=== PATIENT | male | born 1990 | race Caucasian/White ===

== ENCOUNTER 2022-10-04 09:37 | Emergency (ER) | payer MEDICARE, SELFPAY ==
--- NOTE | ~2022-10-04 | US_ITS ---
EXAMINATION: US venous doppler [facility] DATE: 10/04/2022 10:22 INDICATION: Left lower limb pain TECHNIQUE: Grayscale ultrasound images without and with compression and Doppler ultrasound images of the left lower extremity veins were obtained. COMPARISON: None. FINDINGS: The visualized portions of left common femoral vein, profunda (deep) femoral vein, femoral vein, popl iteal vein, peroneal veins, posterior tibial veins and greater saphenous vein outflow are patent. IMPRESSION: 1. No deep venous thrombosis in the left lower limb. Reviewed, dictated and finalized at location A. LD OPERATOR
[2022-10-04 09:42] VITALS: BP 143/74; PULSE 95; RESP 18; TEMP 37.4; O2SAT 99
[2022-10-04 09:47] VITALS: O2SAT 98
[2022-10-04 10:00] VITALS: PULSE 97; RESP 13
[2022-10-04 12:00] LABS: Influenza A QL RT-PCR Negative (Negative); Influenza B QL RT-PCR Negative (Negative); SARS-CoV-2 RNA PCR Negative
--- NOTE | 2022-10-04 12:14 | ED.EXTPRO ---
HPI - Extremity Problem General Chief complaint: Extremity Problem,Nontraumatic Stated complaint: left leg pain x 3 days with low grade fever Time Seen by Provider: 10/04/22 09:41 Source: RN notes reviewed History of Present Illness HPI Narrative: Patient presents emergency room from home for left leg pain. Patient states he has been having some pain in his left leg for the past 3 days the pain starts in his left heel and radiates into his left calf described as aching in nature. He states he has a history of blood clots and is currently on Eliquis as well as has an IVC filter. He is followed by hematology and states he is concerned that he had had a blood clot he denies any trauma or injury he does states he has had a low-grade fever this morning approximately 100 and taken Tylenol he states he has been feeling mildly achy with a mild cough this been nonproductive he denies any chest pain shortness of breath abdominal pain nausea vomiting or any other symptoms Related Data Allergies Allergy/AdvReac Type Severity Reaction Status Date / Time morphine Allergy Mild Rash Verified 10/04/22 09:49 Review of Systems Review of Systems: Gen.: Reports low-grade fever Eyes: Denies eye pain or visual change ENT: Denies congestion Respiratory: Denies shortness of breath reports nonproductive cough CV: Denies chest pain or palpitations GI: Denies abdominal pain nausea, emesis or diarrhea Musculoskeletal: Reports left leg pain Neuro: Denies numbness, tingling, weakness or focal weakness Skin: Denies rash Except as documented, all other systems reviewed and negative [facility] Past Medical History Medical History (Updated 10/04/22 @ 12:19 by Matt Wang DO) DVT (deep venous thrombosis) Social History Social History Smoking status: Never smoker Second hand tobacco smoke exposure: No Alcohol intake: current Exam Narrative: APPEARANCE: No acute distress, nontoxic, resting in bed EYES: EOMI HEENT: Normocephalic, atraumatic, OMM RESPIRATORY: No respiratory distress Clear to auscultation bilaterally with no rhonchi wheezing or rales. CARDIOVASCULAR: Regular rate and rhythm without murmurs rubs or gallops. ABDOMINAL: Soft, nontender, nondistended, no rebound or guarding MUSCULOSKELETAl: Moves all extremities. No clubbing, cyanosis or jessica mild tenderness over the left calf no tenderness left knee or ankle following ingestion of both dorsalis pedis pulse 2+ neurovascular intact no erythema NEURO: Awake and alert. Following commands, speech normal, no focal deficits SKIN:: Warm, dry. No rashes lesions or abrasions PSYCHIATRIC: Normal affect/mood, Course Course Emergency Course: Discussed with patient results of work-up discussed possible calf strain he will follow-up with his PCP Discussed with patient results of workup and diagnosis. Discussed need for follow-up with primary care, proper use of medication, and reasons to return to the emergency department. Patient understands and agrees to current treatment plan Vital Signs Vital signs: Vital Signs Temperature 99.3 F 10/04/22 09:42 Pulse Rate 95 10/04/22 09:42 Respiratory Rate 18 10/04/22 09:42 Blood Pressure 143/74 H 10/04/22 09:42 Pulse Oximetry 99 10/04/22 09:42 Oxygen Delivery Room Air 10/04/22 09:42 Temperature 99.3 F 10/04/22 09:42 Pulse Rate 95 10/04/22 09:42 Respiratory Rate 18 10/04/22 09:42 Blood Pressure 143/74 H 10/04/22 09:42 Pulse Oximetry 99 10/04/22 09:42 Oxygen Delivery Room Air 10/04/22 09:42 MDM - Extremity (Nontraumatic) Lab Data Labs: Lab Results 10/04/22 Range/Units 10:45 Influenza A (RT-PCR) Negative (Negative) Influenza B (RT-PCR) Negative (Negative) SARS-CoV-2 RNA (RT-PCR) Negative Imaging Data Radiologist's impression: ITS Impressions Venous Doppler Study 10/04/22 10:24 IMPRESSION: 1. No deep venous thrombosis in
== END 2022-10-04 12:38 | disposition home or self-care (01) ==
PROVIDERS: Emergency Provider Emergency Medicine
DX: M79.662 Pain in left lower leg (principal); Z20.822 Contact with and (suspected) exposure to COVID-19; Z86.718 Personal history of other venous thrombosis and embolism; Z79.01 Long term (current) use of anticoagulants
CPT/HCPCS: 87636; 93971; 99284

== ENCOUNTER 2025-03-18 14:59 | Emergency (ER) | payer MEDICARE, SELFPAY ==
[2025-03-18 15:00] VITALS: BP 139/76; PULSE 116; RESP 18; TEMP 36.2; O2SAT 98
[2025-03-18 16:17] LABS: Basophils Percent Auto 0.5 % (0.2-1.2); Eosinophils Absolute Auto 0.1 K/mm3 (0-0.3); Eosinophils Percent Auto 2.2 % (0-4.4); Hematocrit 36.8 % (42.0-52.0); Hemoglobin 12.1 g/dL (14.0-18.0); Immature Granulocyte Absolute 0.02 K/mm3 (0.00-0.031); Immature Granulocyte Percent A 0.3 % (0-0.5); Lymphocytes Absolute Auto 1.22 K/mm3 (0.9-3.2); Lymphocytes Percent Auto 19.2 % (18.3-44.2); Mean Corpuscular HGB Conc 32.9 g/dl (32-36); Mean Corpuscular Hemoglobin 31.4 pg (26-34); Mean Corpuscular Volume 95.6 fl (80-100); Mean Platelet Volume 10.6 fl (7.4-10.4); Monocytes Absolute Auto 0.8 K/mm3 (0.1-0.6); Monocytes Percent Auto 12.4 % (2.6-8.5); Neutrophils Absolute Auto 4.2 K/mm3 (1.3-6.7); Neutrophils Percent Auto 65.4 % (45.5-73.1); Platelet Count Result 194 k/mm3 (150-375); Red Blood Count 3.85 M/mm3 (4.6-6.20); Red Cell Distribution Width 14.1 % (11.5-14.5); White Blood Count 6.4 K/mm3 (4.5-10.0)
[2025-03-18 16:20] LABS: Add Urine Microscopic? NO; Appearance Urine Clear (Clear); Bilirubin Urine Negative (Negative); Blood Urine Negative (Negative); Color Urine Yellow (Yellow); Glucose Urine UA Negative (Negative); Ketones Urine 1+ mg/dL (Negative); Leukocyte Esterase Ur Negative LEU/UL (Negative); Nitrate Urine Negative (Negative); Protein Urine Negative (Negative); Specific Grav Ur 1.008 (1.001-1.035); Urobilinogen Urine 0.2 mg/dL (<2.0); pH Urine 6.5 (5.0-9.0)
[2025-03-18 16:28] LABS: Alanine Aminotransferase 19 U/L (6-50); Albumin Level 4.8 g/dL (3.5-5.1); Alkaline Phosphatase 79 U/L (38-126); Anion Gap 14 mmol/L (4-12); Aspartate Amino Transferase 31 U/L (17-59); Bilirubin,Total 0.6 mg/dL (0.2-1.3); Blood Urea Nitrogen 21 mg/dL (9-20); Calcium 9.3 mg/dL (8.4-10.2); Carbon Dioxide 24 mmol/L (22-30); Chloride 99 mmol/L (98-107); Estimated CRCL calculation 65 ml/min; Estimated Glomerular Filt Rate 59; Ethanol < 10 mg/dL (<10); Glucose 82 mg/dL (65-110); Potassium 4.3 mmol/L (3.4-5.0); Sodium 137 mmol/L (137-145)
[2025-03-18 16:40] LABS: Barbiturate Screen Urine Negative (Negative); Benzodiazepines Screen Urine Negative (Negative)
[2025-03-18 16:41] LABS: Cannabinoid Screen Urine Positive (Negative); Cocaine Screen Urine Negative (Negative); Methadone Screen Urine Negative (Negative); Opiate Screen Urine Positive (Negative); Phencyclidine Screen Urine Negative (Negative)
[2025-03-18 16:56] LABS: Influenza A QL RT-PCR Negative (Negative); Influenza B QL RT-PCR Negative (Negative); RSV RNA, RT-PCR Negative (Negative); SARS-CoV-2 RNA PCR Negative (Negative)
--- OUTSIDE RECORDS SUMMARY | 2025-03-18 17:03 | XMS_ITS | Encounter Summary ---
Author Organization [facility] Address [address] [place] [address] Phone Care Team Providers Care Technical Intern Name Role Phone Chris Jo LUIS ARMANDO Primary Care Provider [phone] Jay Rodriguez MD Unavailable Riaz Rose MD Unavailable [phone] Encounter Details Date Type Department Care Team (Late st Contact Info) Description 06/17/2024 Telephone [facility] [place] [address] [place] [address] Jr Reveles DO [address] [place] [address] Social History Tobacco Use Types Packs/Day Years Used Date Smoking Tobacco: Every Day Cigarettes 0.5 16.4 Started: 11/06/2008 Smokeless Tobacco: Never Alcohol Use Standard Drinks/Week Comments Yes 0 (1 standard drink = 0.6 oz pur e alcohol) occasionally PHQ-2 Answer Date Recorded Total Score - Questions 1-9 0 04/27 Sex and Gender Information Value Date Recorded Sex Assigned at Not on file Legal Sex Male 11:21 PM CDT Gender Identity Not on file Sexual Orientation Not on file documented as of this encounter Miscellaneous Notes * Telephone Encounter - FuadCheyanneEstella L - 06/17/2024 2:52 PM CDT Wasn't able to get in contact with pt about missed appt lvm also sent letter out. documented in this encounter Plan of Treatment Upcoming Encounters Date Type Department Care Team (Late st Contact Info) Description 04/17/2025 9:55 AM CDT Lab [facility] [address] [phone] Jr Reveles, DO [address] [place] [address] Lab, Cc [facility] 04/17/2025 10:00 AM CDT Office Visit [facility] [address] [phone] Jr Reveles, DO [address] [place] [address] documented as of this encounter Visit Diagnoses Not on filedocumented in this encounter Additional Health Concerns Assessment Noted Time PHQ-9 Depression Total Score: 0 10/10/20 21 11:08 AM ASSISTED LIVING CARE MANAGER documented as of this encounter Care Teams Technical Intern Relationship Specialty Start Date End Date Chris Jo APRN [address] [place] [phone] PCP - General Advanced Practice Nurse 11/06/17 Jay Rodriguez MD [address] [place] [phone] Urology 07/01/18 08/19/24 Riaz Rose MD Three [facility]. [place] [address] [place], [place] [phone] Consulting Physician Cardiovascular Disease - Cardiology 04/23/20 documented as of this encounter
--- OUTSIDE RECORDS SUMMARY | 2025-03-18 17:03 | XMS_ITS | Encounter Summary ---
Author Organization [facility] Address [address] [place] [address] Phone Care Team Providers Care Building Guard Deputy Sheriff Name Role Phone GailDorindajamesnadine LUIS ARMANOD Primary Care Provider [phone] Jay Rodriguez MD Unavailable Riaz Rose MD Unavailable [phone] Reason for Visit * Reason Onset Date Comments Medication Refill 10/10/2022 Encounter Details Date Type Department Care Team (Late st Contact Info) Description 10/10/2022 Refill [facility] [address] [place] [address] Zaheer Araujo MD [address] [place] [address] Medication Refill Social History Tobacco Use Types Packs/Day Years [...] encounter Miscellaneous Notes * Telephone Encounter - Sweetie Lam APRN, FURNACE ROASTER - 10/11/2022 8:18 AM AIRCRAFT TOOL MAKER Okay to refill. RAFT TOOL MAKER * Telephone Encounter - Keith Tilley - 10/10/2022 4:10 PM CST Refill request for Eliquis 5 mg. Refill if appropriate to [facility] pharmacy RAFT TOOL MAKER documented in this encounter Plan of Treatment Upcoming Encounters Date Type Department Care Team (Late st Contact Info) Description 04/17/2025 9:55 AM CDT Lab [facility] [address] [phone] Jr Reveles, DO [address] [place] [phone] [facility] 04/17/2025 10:00 AM CDT Office Visit [facility] [address] [phone] Jr Reveles, DO [address] [place] [phone] documented as of this encounter Visit Diagnoses Not on filedocumented in this encounter Additional Health Concerns Assessment Noted Time PHQ-9 Depression Total Score: 0 10/10/20 21 11:08 AM AIRCRAFT TOOL MAKER documented as of this encounter Care Teams Building Guard Deputy Sheriff Relationship Specialty Start Date End Date Chris Jo APRN [address] [place] [address] PCP - General Advanced Practice Nurse 11/06/17 Jay Rodriguez MD [address] [place] [address] Urology 07/01/18 08/19/24 Riaz Rose MD Three [facility]. [address] [address] Consulting Physician Cardiovascular Disease - Cardiology 04/23/20 documented as of this encounter
--- OUTSIDE RECORDS SUMMARY | 2025-03-18 17:03 | XMS_ITS | Encounter Summary ---
[facility] Address [address] [place] [address] Phone Care Team Providers Care Bulb Inspector Name Role Phone Chris Jo LUIS ARMANDO Primary Care Provider [phone] Jay Rodriguez MD Unavailable Riaz Rose MD Unavailable [phone] Encounter Details Date Type Department Care Team (Late Contact Info) Description 06/17/2024 Telephone [facility] [address] [address] Jr Reveles DO [address] [place] [phone] Social History Tobacco Use Types Packs/Day [...] on file documented as of this encounter Plan of Treatment Upcoming Encounters Date Type Department Care Team (Late st Contact Info) Description 04/17/2025 9:55 AM CDT Lab [facility] [address] [address] Jr Reveles, DO [address] [place] [address] Jenna Rubi [facility] 04/17/2025 10:00 AM CDT Office Visit [facility] [place] [address] [place] [address] Jr Reveles, DO [address] [place] [address] documented as of this encounter Visit Diagnoses Not on filedocumented in this encounter Additional Health Concerns Assessment Noted Time PHQ-9 Depression Total Score: 0 10/10/20 21 11:08 AM RESIDENTIAL ROOFER HELPER documented as of this encounter Care Teams Bulb Inspector Relationship Specialty Start Date End Date Chris Jo APRN [address] [place] [address] PCP - General Advanced Practice Nurse 11/06/17 Jay Rodriguez MD [address] [place] [address] Urology 07/01/18 08/19/24 Riaz Rose MD Three [facility]. [facility] [address] [place] [address] Consulting Physician Cardiovascular Disease - Cardiology 04/23/20 documented as of this encounter
--- OUTSIDE RECORDS SUMMARY | 2025-03-18 17:03 | XMS_ITS | Encounter Summary ---
Author Organization [facility] Address [address] [place] [address] Phone Care Team Providers Care Grounds Restoration Specialist Name Role Phone Chris Jo LUIS ARMANDO Primary Care Provider [phone] Jay Rodriguez MD Unavailable Riaz Rose MD Unavailable [phone] Encounter Details Date Type Department Care Team (Late st Contact Info) Description 05/30/2024 Telephone [facility] [place] [address] [place] [address] Jr Reveles DO [address] [place] [address] Social History Tobacco Use Types [...] encounter Miscellaneous Notes * Telephone Encounter - MeridaDesirejonel Montelongo - 05/30/2024 12:32 PM CDT Pt missed appt called to rs wasn't able to reach [facility],sent letter out. documented in this encounter Plan of Treatment Upcoming Encounters Date Type Department Care Team (Late st Contact Info) Description 04/17/2025 9:55 AM CDT Lab [facility] [address] [phone] Jr Reveles, DO [address] [place] [address] Lab, Cc [facility] 04/17/2025 10:00 AM CDT Office Visit [facility] [address] [phone] Jr Reveles, DO [address] [place] [address] documented as of this encounter Visit Diagnoses Not on filedocumented in this encounter Additional Health Concerns Assessment Noted Time PHQ-9 Depression Total Score: 0 10/10/20 21 11:08 AM DRIVER RETRAINING INSTRUCTOR documented as of this encounter Care Teams Grounds Restoration Specialist Relationship Specialty Start Date End Date Addy Jonadine LUIS ARMANDO [address] [place] [phone] PCP - General Advanced Practice Nurse 11/06/17 Jay Rodriguez MD [address] [place] [phone] Urology 07/01/18 08/19/24 Riaz Rose MD Three [facility] [address] [place] [address] Consulting Physician Cardiovascular Disease - Cardiology 04/23/20 documented as of this encounter
--- OUTSIDE RECORDS SUMMARY | 2025-03-18 17:03 | XMS_ITS | Encounter Summary ---
Author Organization [facility] Address [address] [place] [address] Phone Care Team Providers Care Box Lining Machine Operator Name Role Phone Chris Jo LUIS ARMANDO Primary Care Provider [phone] Jay Rodriguez MD Unavailable Riaz Rose MD Unavailable [phone] Encounter Details Date Type Department Care Team (Late st Contact Info) Description 04/10/2022 Telephone [facility] [address] [place] [address] Jr Reveles DO [address] [place] [address] Social History Tobacco Use Types Packs/Day Years Used Date Smoking Tobacco: Every Day Cigarettes 0.5 16.4 Started: 11/06/2008 Smokeless Tobacco: Never Alcohol Use Standard Drinks/Week Comments Yes 0 (1 standard drink = 0.6 oz pur e alcohol) occasionally PHQ-2 Answer Date Recorded Total Score - Questions 1-9 0 09/26 Sex and Gender Information Value Date Recorded Sex Assigned at Not on file Legal Sex Male 11:21 PM CDT Gender Identity Not on file Sexual Orientation Not on file documented as of this encounter Miscellaneous Notes * Telephone Encounter - Ayla Valdez - 04/10/2022 12:34 PM CDT Called pt to reschedule ns ov. Letter sent out. VM left. documented in this encounter Plan of Treatment Upcoming Encounters Date Type Department Care Team (Late st Contact Info) Description 04/17/2025 9:55 AM CDT Lab [facility] [address] [phone] Jr Reveles, DO [address] [place] [phone] Lab, Cc [facility] 04/17/2025 10:00 AM CDT Office Visit [facility] [address] [address] Jr Reveles, DO [address] [place] [phone] documented as of this encounter Visit Diagnoses Not on filedocumented in this encounter Additional Health Concerns Assessment Noted Time PHQ-9 Depression Total Score: 0 10/10/20 21 11:08 AM FORM GRADER OPERATOR documented as of this encounter Care Teams Box Lining Machine Operator Relationship Specialty Start Date End Date Addy JoLUIS ARMANDO mccoy [address] [place] [address] PCP - General Advanced Practice Nurse 11/06/17 Jay Rodriguez MD [address] [place] [phone] Urology 07/01/18 08/19/24 Riaz Rose MD Three [facility]. [facility] [address] [place], [place] [phone] Consulting Physician Cardiovascular Disease - Cardiology 04/23/20 documented as of this encounter
--- OUTSIDE RECORDS SUMMARY | 2025-03-18 17:03 | XMS_ITS | Clinical Summary ---
Author Organization [facility] Address [address], [facility] [address] [place] [address] Phone Care Team Providers Care Business Banking Relationship Manager Name Role Phone GailDorindaomar DURÁN Primary Care Provider [phone] Riaz Rose MD Unavailable [phone] Allergies Active Allergy Reactions Criticality Noted Date Comments Morphine Rash Low 10/23/2017 Medications Eliquis 5 MG TabletIndication s:Deep vein thrombosis (DVT) of femoral vein of both lower extremities, unspecified chronicity (HCC) Take 1 tablet by mouth twice daily 180 Tablet 01/19/2025 Active Active Problems Patient Care Coordination No te Formatting of this note migh t be different from the original. 09/06/18: Approved for Xarelto 20mg for 1 year Problem Noted Date Diagnosed Date Dvt femoral (deep venous thrombosis) 11/06/2017 Encounters Date Type Department Care Team Description 02/06/2025 Telephone [facility] [address] [address] Jr Reveles DO 01/17/2025 Refill [facility] [address] [address] Jr Reveles, Medication Refill from Last 3 Months Immunizations Immunization Administration Dates Next Due Covid-19 Vaccine, Vector-nr, Rs-ad26, Pf, 0.5 Ml ([employer]) 03/02/2021 Influenza, Injectable, Quadrivalent 10/01/2017 TDAP Vaccine 06/08/2017,06/09/2010 Family History Medical History Relation Name Comments Diabetes Maternal Grandfather Asthma Maternal Grandmother High Cholesterol Maternal Grandmother Hypertension Maternal Grandmother Diabetes Maternal Uncle Asthma Mother Diabetes Mother High Cholesterol Mother Asthma Sister Relation Name Status Comments Maternal Grandfather Maternal Grandmother Maternal Uncle Mother Sister Social History Tobacco Use Types Packs/Day Years Used Date Smoking Tobacco: Every Day Cigarettes 0.5 16.4 Started: 11/06/2008 Smokeless Tobacco: Never Tobacco Cessation:Ready to Q uit: Yes; Counseling Given: Yes Alcohol Use Standard Drinks/Week Comments Yes 0 (1 standard drink = 0.6 oz pur e alcohol) occasionally PHQ-2 Answer Date Recorded Total Score - Questions 1-9 0 04/27 Sex and Gender Information Value Date Recorded Sex Assigned at Not on file Legal Sex Male 11:21 PM CDT Gender Identity Not on file Sexual Orientation Not on file Last Filed Vital Signs Vital Sign Reading Time Taken Comments Blood Pressure 122/76 10/17/2024 10:04 AM WEED THINNER Pulse 95 10/17/2024 10:04 AM WEED THINNER Temperature 36.7 C (98 F) 10/17/2024 10:04 AM WEED THINNER Respiratory Rate 18 10/17/2024 10:04 AM WEED THINNER Oxygen Saturation 97% 10/17/2024 10:04 AM WEED THINNER Inhaled Oxygen Concentration - - Weight 97.8 kg (215 lb 9.6 oz) 10/17/2024 10:04 AM WEED THINNER Height 182.9 cm (6') 10/17/2024 10:04 AM WEED THINNER Body Mass Index 29.24 10/17/2024 10:04 AM WEED THINNER Plan of Treatment Upcoming Encounters Date Type Department Care Team (Late st Contact Info) Description 04/17/2025 9:55 AM CDT Lab [facility] [address] [address] Jr Reveles, [address] [place] [phone] [facility] 04/17/2025 10:00 AM CDT Office Visit [facility] [address] [phone] Jr Reveles, [address] [place] [address] Health Maintenance Due Date Last Done Comments Hepatitis B Immunization (1 of 3 - 19+ 3-dose series) 01/29/2007 Pneumococcal Immunization Combined (1 of 2 - PCV) 01/29/2007 Influenza Immunization (#1) 07/27/202408/26, 10/01/2017 SARS-COV-2 Immunization (2 - 2023- season) 2024 03/02/2021 Td Immunization Every 10 Years (Adults With 1 Tdap) 06/08/2027 06/08/2017, 06/09/2010 Respiratory Syncytial Virus (RSV) Immunization (Adult) (1 - 1-dose 75+ series) 01/29/2063 DTaP/Tdap/Td Immunization Discontinued 2016, 06/09/2010 Hepatitis C Virus (HCV) Screening Completed 03/28/2018 Meningococcal Immunization (ACWY) Aged Out No longer eligible based on patient's age to complete this topic Rotavirus Immunization Aged Out No lo nger eligible based on patient's age to complete this topic Insurance MEDICARE [facility] [place] [address] Care Teams Business Banking Relationship Manager Relationship Specialty Start Date End Date Chris Jo APRN [address] [place] [address] PCP - General Advanced Practice Nurse 11/06/17 Riaz Rose MD [address] [id number] Consulting Physician Cardiovascular Disease - Cardiology 04/23/20
--- OUTSIDE RECORDS SUMMARY | 2025-03-18 17:03 | XMS_ITS | Encounter Summary ---
Author Organization [facility] Address [address] [place] [address] Phone Care Team Providers Care Front End Web Designer Name Role Phone GailDorindajamesnadine LUIS ARMANDO Primary Care Provider [phone] Jay Rodriguez MD Unavailable Riaz Rose MD Unavailable [phone] Reason for Visit * Reason Comments Medication Refill Encounter Details Date Type Department Care Team (Late st Contact Info) Description 07/29/2023 Refill [facility] [place] [address] [place] [address] Sweetie Alvarez APRN, TANK STORAGE SUPERVISOR [address] [place], [place] [phone] Medication Refill Social History Tobacco Use Types [...] encounter Miscellaneous Notes * Telephone Encounter - Raquel Lr RN - 07/31/2023 8:58 AM CDT Refill request from pharmacy. Please fill if appropriate. documented in this encounter Plan of Treatment Upcoming Encounters Date Type Department Care Team (Late st Contact Info) Description 04/17/2025 9:55 AM CDT Lab [facility] [address] [address] Jr Reveles, DO [address] [place] [address] Lab, [facility] 04/17/2025 10:00 AM CDT Office Visit [facility] [address] [phone] Jr Reveles, DO [address] [place] [phone] documented as of this encounter Visit Diagnoses Diagnosis Deep vein thrombosis (DVT) of femoral vein of both lower extremities, unspecified chronicity (HCC) documented in this encounter Additional Health Concerns Assessment Noted Time PHQ-9 Depression Total Score: 0 10/10/20 21 11:08 AM BULLARD MACHINE OPERATOR documented as of this encounter Care Teams Front End Web Designer Relationship Specialty Start Date End Date Chris Jo APRN [address] [place] [address] PCP - General Advanced Practice Nurse 11/06/17 Jay Rodriguez MD [address] [place] [address] Urology 07/01/18 08/19/24 Riaz Rose MD [facility]. [address] [phone] Consulting Physician Cardiovascular Disease - Cardiology 04/23/20 documented as of this encounter
--- OUTSIDE RECORDS SUMMARY | 2025-03-18 17:03 | XMS_ITS | Encounter Summary ---
Author Organization [facility] Address [address] [place] [address] Phone Care Team Providers Care Treatment Supervisor Name Role Phone Chris Jo LUIS ARMANDO Primary Care Provider [phone] Jay Rodriguez MD Unavailable Riaz Rose MD Unavailable [phone] Reason for Visit * Reason Comments Medication Refill Encounter Details Date Type Department Care Team (Late st Contact Info) Description 03/13/2022 Refill [facility] [address] [place] [address] Jr Reveles, [address] [place] [address] Medication Refill Social History Tobacco [...] encounter Miscellaneous Notes * Telephone Encounter - Wei Mccoy RN - 03/14/2022 7:43 AM CDT Refill request from pharmacy 90 day supply. Refill if appropriate. documented in this encounter Plan of Treatment Upcoming Encounters Date Type Department Care Team (Late st Contact Info) Description 04/17/2025 9:55 AM CDT Lab [facility] [address] [address] Jr Reveles, DO [address] [place] [phone] Lab, [facility] 04/17/2025 10:00 AM CDT Office Visit [facility] [address] [phone] Jr Reveles, DO [address] [place] [phone] documented as of this encounter Visit Diagnoses Not on filedocumented in this encounter Additional Health Concerns Assessment Noted Time PHQ-9 Depression Total Score: 0 10/10/20 21 11:08 AM ORCHARD PRUNER documented as of this encounter Care Teams Treatment Supervisor Relationship Specialty Start Date End Date Chris Jo APRN [address] [place] [address] PCP - General Advanced Practice Nurse 11/06/17 Jay Rodriguez MD [address] [place] [phone] Urology 07/01/18 08/19/24 Riaz Rose MD [address] [phone] Consulting Physician Cardiovascular Disease - Cardiology 04/23/20 documented as of this encounter
--- OUTSIDE RECORDS SUMMARY | 2025-03-18 17:03 | XMS_ITS | Encounter Summary ---
Author Organization [facility] Address [address] [place] [address] Phone Care Team Providers Care Miller Helper Name Role Phone Chris Jo LUIS ARMANDO Primary Care Provider [phone] Jay Rodriguez MD Unavailable Riaz Rose MD Unavailable [phone] Reason for Visit * Reason Comments Medication Refill Encounter Details Date Type Department Care Team (Late st Contact Info) Description 04/21/2021 Refill [facility] [place] [address] [place] [address] Jr Reveles, [address] [place] [address] Medication Refill Social History Tobacco Use Types Packs/Day Years Used Date Smoking Tobacco: Every Day Cigarettes 0.5 16.4 Started: 11/06/2008 Smokeless Tobacco: Never Alcohol Use Standard Drinks/Week Comments Yes 0 (1 standard drink = 0.6 oz pur e alcohol) occasionally PHQ-2 Answer Date Recorded Total Score - Questions 1-9 0 03/26 Sex and Gender Information Value Date Recorded Sex Assigned at Not on file Legal Sex Male 11:21 PM CDT Gender Identity Not on file Sexual Orientation Not on file COVID-19 Exposure Response Date Recorded In the last month, have you been in contact with someone who was confirmed or suspected to have Coronavirus / COVID-19? No / Unsure 04/11/2021 10:37 AM CDT documented as of this encounter Miscellaneous Notes * Telephone Encounter - Wei Mccoy, RN - 04/22/2021 7:51 AM CDT Refill request from pharmacy. Refill if appropriate. documented in this encounter Plan of Treatment Upcoming Encounters Date Type Department Care Team (Late st Contact Info) Description 04/17/2025 9:55 AM CDT Lab [facility] [address] [address] Jr Reveles, DO [address] [place] [phone] [facility] 04/17/2025 10:00 AM CDT Office Visit [facility] [address] [phone] Jr Reveles, DO [address] [place] [phone] documented as of this encounter Visit Diagnoses Not on filedocumented in this encounter Additional Health Concerns Assessment Noted Time PHQ-9 Depression Total Score: 0 04/11/20 21 10:43 AM CDT documented as of this encounter Care Teams Miller Helper Relationship Specialty Start Date End Date Chris Jo APRN [address] [place] [address] PCP - General Advanced Practice Nurse 11/06/17 Jay Rodriguez MD [address] [place] [phone] Urology 07/01/18 08/19/24 Riaz Rose MD [address] [address] Consulting Physician Cardiovascular Disease - Cardiology 04/23/20 documented as of this encounter
--- OUTSIDE RECORDS SUMMARY | 2025-03-18 17:03 | XMS_ITS | Clinical Summary ---
Author Organization [facility] Address [facility] [place] [address] Care Team Providers Care Light Rail Transit Operator Name Role Phone Abdirizak Jr Jannette DO Unavailable [phone] Eloisa Lemos MD Primary Care Provider [phone] Allergies Active Allergy Reactions Criticality Noted Date Comments Morphine Rash Low 10/23/2017 Medications amitriptyline (ELAVIL) 25 MG tablet Take 1 tablet (25 mg total) by mouth nightly at bedtime. 09/11/2023 Active enoxaparin (LOVENOX) 80 mg/0.8 mL Solution Prefilled Syringe syringe Inject 0.8 mLs (80 mg total) into the skin every 12 (twelve) hours. 6 mL 11/05/2023 Active apixaban (ELIQUIS) 5 MG tablet Take 1 tablet (5 mg total) by mouth 2 (two) times daily. Active Active Problems Problem Noted Date Diagnosed Date DVT (deep venous thrombosis) ([facility] HHS/HCC) 0 02/13/2025 Superficial thrombophlebitis 02/13/2025 Lower GI bleed 11/01/2023 Hematochezia 11/01/2023 Severe dehydration 09/27/2018 Assessment & Plan (09/27/2018 8:54 PM CDT): Tachycardia, decreased PO intake, orthostatic vitals, history all consistent with dehydration. S/P 2L IVF in ED. Tachycardia resolved but orthostatic vitals persistent with persistence of symptoms of lightheadedness. Admission criteria met due to dehydration being severe and persistent. - IVF at 2x maintenance rate; 150cc/hr LR - monitor clinically - orthostatic vitals qshift FENG (acute kidney injury) 09/27/2018 Assessment & Plan (09/27/2018 8:56 PM CDT): Acute, now resolved Presented to ED with BUN/Cr 12/1.37. 1 yr prior had Cr 0.75. 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) 0 06/04/2018 Chronic deep vein thrombosis (DVT) of proximal vein of both lower extremities ([facility]) 06/04/2018 Encounters Date Type Department Care Team Description 02/13/2025 12:14 PM CDT - 02/14/2025 6:41 AM CDT Hospital Encounter [facility] Med/Surg [address] [place] [address] Guero Bryan, Jean Singer MD Groin Pain (/) Discharge Disposition: Left Against Medical Advice 02/13/2025 Travel from Last 3 Months Family History Medical History Relation Comments Asthma Mother Diabetes Mother Asthma Sister Relation Status Comments Mother Alive Sister Social History Tobacco Use Types Packs/Day Years Used Date Smoking Tobacco: Former Cigarettes 0.5 10 1 11/26/2012 - 09/26/2023 Smokeless Tobacco: Never Tobacco Cessation:Counseling Given: Not Answered Alcohol Use Standard Drinks/Week Comments Yes 0 (1 standard drink = 0.6 oz pur e alcohol) occasionally [employer] Answer Date Recorded In the past 12 months has e [employer], gas, oil, or water [employer] threatened to shut off services in your home? No 02/13/2025 Humiliation, Afraid, Rape, and Kick questionnair e Answer Date Recorded Within the last year, have y ou been afraid of your partner or ex-partner? No 02/13/2025 Within the last year, have y ou been humiliated or emotionally abused in other ways by your partner or ex-partner? No Within the last year, have y ou been kicked, hit, slapped, or otherwise physically hurt by your partner or ex-partner? No 02/13/2025 Within the last year, have y ou been raped or forced to have any kind of sexual activity by your partner or ex-partner? No 02/13/2025 Overall Financial Resource Strain (CARDIA) Answe r Date Recorded How hard is it for you to pa y for the very basics like food, housing, medical care, and heating? Not hard at all 02/13/2025 Hunger Vital Sign Answer Date Recorded Within the past 12 months, y ou worried that your food would run out before you got the money to buy more. Never true 02/14/20 25 Within the past 12 months, t he food you bought just didn't last and you didn't have money to get more. Never true 02/13/2025 PRAPARE - Transportation Answer Date Re corded In the past 12 months, has l ack of transportation kept you from medical appointments or from getting medications? No 01/25 In the past 12 months, has l ack of transportation kept you from meetings, work, or from getting things needed for daily living? No 02/13/2025 Housing Stability Vital Sign Answer Campos e Recorded In the last 12 months, was t here a time when you were not able to pay the mortgage or rent on time? No 11/02/2023 In the last 12 months, how many places have you lived? 1 11/02/2023 In the last 12 months, was t here a time when you did not have a steady place to sleep or slept in a alf (including now)? No 11/02/2023 Housing Stability Vital Sign Answer Campos e Recorded In the last 12 months, was t here a time when you were not able to pay the mortgage or rent on time? No 02/13/2025 In the past 12 months, how m any times have you moved where you were living? 0 02/13/2025 At any time in the past 12 m [facility], were you homeless or living in a alf (including now)? No 02/13/2025 Sex and Gender Information Value Date Recorded Sex Assigned at Male 11/01/2023 9:08 PM CROZER OPERATOR Legal Sex Male 11:08 AM CROZER OPERATOR Gender Identity Male 11/01/2023 9:08 PM CROZER OPERATOR Sexual Orientation Straight 11/01/2023 9: 08 PM CROZER OPERATOR Last Filed Vital Signs Vital Sign Reading Time Taken Comments Blood Pressure 130/80 02/14/2025 4:38 AM CDT Pulse 102 02/14/2025 4:38 AM CDT Temperature 36.8 C (98.2 F) 02/14/2025 4:38 AM CDT Respiratory Rate 18 02/14/2025 4:38 AM CDT Oxygen Saturation 99% 02/14/2025 4:38 AM CDT Inhaled Oxygen Concentration - - Weight 95.3 kg (210 lb 1.6 oz) 02/14/2025 4:47 A M CDT Height 182.9 cm (6') 02/13/2025 12:00 PM CDT Body Mass Index 28.49 02/13/2025 12:00 PM CDT Plan of Treatment Health Maintenance Due Date Last Done Comments Annual Physical 01/29/1991 Hepatitis B Vaccines (1 of 3 - 19+ 3-dose series) 01/29/2007 COVID-19 Vaccine (2 - 2023-2 5 season) 2024 03/02/2021 DTaP, Tdap and Td Vaccines ( 3 - Td or Tdap) 06/08/2027 06/08/2017, 06/09/2010 Hepatitis C Completed 03/28/2018 HPV Vaccines Aged Out No longer eligi ble based on patient's age to complete this topic Meningococcal B Vaccine Aged Out No l onger eligible based on patient's age to complete this topic Meningococcal Vaccine Aged Out No dilia aidan eligible based on patient's age to complete this topic Pneumococcal Vaccine: Pediatrics (0 to 5 Years) and At-Risk Patients (6 to 49 Years) Aged Out No longer eligible b ased on patient's age to complete this topic RSV Immunizations Under 20 Months Aged Out No longer eligible b ased on patient's age to complete this topic Procedures Procedure Name Priority Date/Time Associated Diagnosis Comments HEPARIN, ANTI XA, UFH STAT 02/13/2025 4:40 PM CDT USV IRMA DUPLEX LOW EXT PRIMO STAT 02/13/2025 2:58 PM CDT COMPREHENSIVE METABOLIC PANEL STAT 02/13/2025 12:34 PM CDT PARTIAL THROMBOPLASTIN TIME,PTT STAT 02/13/2025 12:34 PM CDT PROTHROMBIN TIME, VENOUS STAT 02/13/2025 12:34 PM CDT CBC W/DIFF AUTOMATED STAT 02/13/2025 12:34 PM CDT from Last 3 Months Results * (ABNORMAL) HEPARIN, ANTI XA, UFH (02/13/2025 4:40 PM CDT) HEPARIN ANTI XA UFH <0.04(L) 0.30 - 0.70 IU/ML 02/13/2025 5:22 PM CDT [facility] Comment: UFH Therapeutic Anti Xa Ranges: Medical Therapeutic Range: 0.30 - 0.70 IU/mL Cardiac Therapeutic Range: 0.30 - 0.50 IU/mL Neuro Therapeutic Range: 0.20 - 0.40 IU/mL 02/13/2025 4:40 PM CDT Guero Bryan DO LABORATORY Final Res ult [facility] [address] [place] [phone], * USV IRMA DUPLEX LOW EXT PRIMO (02/13/2025 2:58 PM CDT) Anatomical Region Laterality Modality Extremity Vascular Ultraso und 02/13/2025 1:39 PM CDT Narrative 02/13/2025 3:58 PM CDT VENOUS DUPLEX IMAGING BILATERAL LOWER EXTREMITY VASCULAR LAB Pat.Name: MAX RIVERA Pat.ID: [id number] St.Date: 02/13/2025 Refer.MD: Eloisa Lemos Exam Time: 1:39:00 PM Study Type:HASEEB VS Venous Duplex Legs PRIMO Age: 3 1990,35Y Sex: M Sonogrphr: Charlee Tolliver, RVT Pat. Stat.:Inpatient Room: ER History / Clinical:Patient complains of red, hot, enlarged lumps and veins to right inner thigh up to the groin and from left to right in the lower pelvis and up the right side of the pelvis Leiden, history of bilateral extensive DVT a couple of times, PE, and IVC filter in place. Patient states they tried to take his filter out at one point and they cannot remove it. On Eliquis and switched to Lovenox last Sunday due to the symptoms. Procedures: Hudson scale, Color Doppler imaging, Doppler Spectral Analysis Race: W ++++++++++++++++++++++++++++++++++++ SUMMARY: ++++++++++++++++++++++++++++++++++++ Right leg: There are acute superficial vein character venous filling defects visualized in the vein of Giacomini, great saphenous, epigastric, and anterior abdominal wall collaterals. There are chronic partial deep vein character venous filling defects visualized in the external iliac, common femoral, profunda femoral, femoral, and popliteal veins. Resting venous flow is continuous, low, reduced. Left leg: There are acute superficial vein character venous filling defects visualized in the epigastric and anterior abdominal wall collaterals crossing the lower pelvis. There are chronic partial deep vein character venous filling defects visualized in the external iliac, common femoral, profunda femoral, femoral, and popliteal veins. Resting venous flow is continuous, low, reduced. CONCLUSION: Acute superficial vein thrombosis of the right vein of Giacomini, great saphenous vein, epigastric, and anterior abdominal wall collaterals. Acute superficial vein thrombosis of the left epigastric and anterior abdominal wall collaterals crossing the lower pelvis. 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 Partial chronic deep vein thrombosis of the bilateral external iliac, common femoral, femoral, and popliteal veins. <Electronic Signature> 02/13/2025 03:58 PM Luiza Tariq M.D. Procedure Note , Generic Conversion, - 02/13/2025 VENOUS DUPLEX IMAGING BILATERAL LOWER EXTREMITY VASCULAR LAB Pat.Name: MAX RIVERA Pat.ID: [id number] .Date: 02/13/2025 Refer.MD: Eloisa Lemos Exam Time: 1:39:00 PM Study Type:HASEEB VS Venous Duplex Legs PRIMO Age: 3 1990,35Y Sex: M Sonogrphr: Charlee Tolliver Raymond Pat. Stat.:Inpatient Room: ER History / Clinical:Patient complains of red, hot, enlarged lumps and veins to right inner thigh up to the groin and from left to right in the lower pelvis and up the right side of the pelvis Leiden, history of bilateral extensive DVT a couple of times, PE, and IVC filter in place. Patient states they tried to take his filter out at one point and they cannot remove it. On Eliquis and switched to Lovenox last Sunday due to the symptoms. Procedures: Hudson scale, Color Doppler imaging, Doppler Spectral Analysis Race: W ++++++++++++++++++++++++++++++++++++ SUMMARY: ++++++++++++++++++++++++++++++++++++ Right leg: There are acute superficial vein character venous filling defects visualized in the vein of Giacomini, great saphenous, epigastric, and anterior abdominal wall collaterals. There are chronic partial deep vein character venous filling defects visualized in the external iliac, common femoral, profunda femoral, femoral, and popliteal veins. Resting venous flow is continuous, low, reduced. Left leg: There are acute superficial vein character venous filling defects visualized in the epigastric and anterior abdominal wall collaterals crossing the lower pelvis. There are chronic partial deep vein character venous filling defects visualized in the external iliac, common femoral, profunda femoral, femoral, and popliteal veins. Resting venous flow is continuous, low, reduced. CONCLUSION: Acute superficial vein thrombosis of the right vein of Giacomini, great saphenous vein, epigastric, and anterior abdominal wall collaterals. Acute superficial vein thrombosis of the left epigastric and anterior abdominal wall collaterals crossing the lower pelvis. 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 Partial chronic deep vein thrombosis of the bilateral external iliac, common femoral, femoral, and popliteal veins. <Electronic Signature> 02/13/2025 03:58 PM Luiza Tariq M.D. Guero Bryan [facility] Final Res ult * PARTIAL THROMBOPLASTIN TIME,PTT (02/13/2025 12:34 PM CDT) PTT 30.6 25.1 - 36.5 SEC 02/13/2025 1:26 PM CDT [facility] 02/13/2025 12:3 4 PM CDT Malka Collier [facility] Final Resul t Performing Organization Address [facility] de Phone Number [facility] [address] [place] [address], * PROTIME/INR, VENOUS (02/13/2025 12:34 PM CDT) PROTIME 11.6 10.2 - 12.9 SEC 02/13/2025 1:26 PM CDT [facility] INR 1.0 02/13/2025 1:26 PM CDT [facility] Comment: Recommended INR Therapeutic Goals: 2.0-3.0 Routine Therapy 2.5-3.5 Mechanical Prosthetic Valves (High Risk) 02/13/2025 12:3 4 PM CDT Malka Collier [facility] Final Resul t Performing Organization Address [facility] de Phone Number [facility] [address] [place] [phone], * (ABNORMAL) COMPREHENSIVE METABOLIC PANEL (02/13/2025 12:34 PM CDT) [facility] GLUCOSE 89 70 - 99 MG/DL 02/13/2025 1:15 PM CDT [facility] BUN 16 7 - 18 MG/DL 02/13/2025 1:15 PM CDT [facility] CREATININE S/P/B 1.15 0.7 - 1.3 MG/DL 02/13/2025 1:15 PM CDT [facility] SODIUM S/P/B 130(L) 136 - 145 MMOL/L 02/13/2025 1:15 PM CDT [facility] POTASSIUM S/P/B 4.0 3.5 - 5.1 MMOL/L 02/13/2025 1:15 PM CDT [facility] CHLORIDE S/P/B 99 97 - 115 MMOL/L 02/13/2025 1:15 PM CDT [facility] CO2 23.5 21 - 32 MMOL/L 02/13/2025 1:15 PM CDT [facility] CALCIUM S/P/B 9.3 8.5 - 10.1 MG/DL 02/13/2025 1:15 PM CDT [facility] BILIRUBIN TOTAL S/P/B 1.2 0.2 - 1.2 MG/DL 02/13/2025 1:15 PM CDT [facility] Comment: THIS ASSAY IS NOT RECOMMENDED FOR PATIENTS UNDERGOING TREATMENT WITH ELTROMBOPAG DUE TO THE POTENTIAL FOR FALSELY ELEVATED RESULTS. TOTAL PROTEIN S/P/B 7.9 6.4 - 8.2 G/DL 02/13/2025 1:15 PM CDT [facility] ALBUMIN S/P/B 4.2 3.4 - 5.0 G/DL 02/13/2025 1:15 PM CDT [facility] AST 21 15 - 37 U/L 02/13/2025 1:15 PM CDT [facility] ALT 18 16 - 60 U/L 02/13/2025 1:15 PM CDT [facility] ALKALINE PHOSPHATASE S/P/B 110 50 - 136 U/L 02/13/2025 1:15 PM CDT [facility] ANION GAP 7.5 2 - 10 MMOL/L 02/13/2025 1:15 PM CDT [facility] BUN CREATININE RATIO 13.9 6 - 26 02/13/2025 1:15 PM CDT [facility] A/G RATIO 1.1 1.0 - 2.0 RATIO 02/13/2025 1:15 PM CDT [facility] GFR ESTIMATE 84(L) >90 ML/MIN/1.7 3 M2 02/13/2025 1:15 PM CDT [facility] Comment: NOTE: eGFR is not calculated for patients <18 years of age or gender unknown. This is an estimated GFR calculation using the new CKD EPI creatinine equation without race and so does not require a correction factor for race. This estimated GFR should not be used for calculating drug doses. 02/13/2025 12:3 4 PM CDT Malka Collier STUDY ABROAD COORDINATOR LABORATORY Final Resul t [facility] [address] [place] [address], [place] [phone] * (ABNORMAL) CBC W/DIFF AUTOMATED (02/13/2025 12:34 PM CDT) WBC 7.89 4.5 - 11.0 x10'3/uL 02/13/2025 1:09 PM CDT [facility] RBC 4.58(L) 4.70 - 6.10 x10'6/uL 02/13/2025 1:09 PM CDT [facility] HGB 14.5 14.0 - 18.0 G/DL 02/13/2025 1:09 PM CDT [facility] HCT 45.3 43.0 - 54.0 % 02/13/2025 1:09 PM CDT [facility] MCV 98.9(H) 80.0 - 94.0 FL 02/13/2025 1:09 PM CDT [facility] MCH 31.7(H) 27.0 - 31.0 PG 02/13/2025 1:09 PM CDT [facility] MCHC 32.0 32.0 - 36.0 G/DL 02/13/2025 1:09 PM CDT [facility] RDW 13.7 11.5 - 14.5 % 02/13/2025 1:09 PM CDT [facility] PLT 125(L) 130 - 400 x10'3/uL 02/13/2025 1:09 PM CDT [facility] MPV 11.2 9.3 - 12.2 FL 02/13/2025 1:09 PM CDT [facility] DIFFERENTIAL TYPE AUTOMATED DIFFERENTIAL 02/13/2025 1:09 PM CDT [facility] NEUTROPHILS % 73.6 % 02/13/2025 1:09 PM CDT [facility] LYMPHOCYTES % 14.1 % 02/13/2025 1:09 PM CDT [facility] MONOCYTES % 8.7 % 02/13/2025 1:09 PM CDT [facility] EOSINOPHILS 2.7 % 02/13/2025 1:09 PM CDT [facility] BASOPHILS 0.5 % 02/13/2025 1:09 PM CDT [facility] IMMATURE GRANS % 0.4 % 02/14/20 1:09 PM CDT [facility] ABS. NEUTROPHILS 5.81 1.80 - 7.70 x10'3/uL 02/13/2025 1:09 PM CDT [facility] ABS. LYMPHOCYTES 1.11 1.00 - 4.80 x10'3/uL 02/13/2025 1:09 PM CDT [facility] ABS. MONOCYTES 0.69 0.30 - 0.82 x10'3/uL 02/13/2025 1:09 PM CDT [facility] ABS. EOSINOPHILS 0.21 0.04 - 0.54 x10'3/uL 02/13/2025 1:09 PM CDT [facility] ABS. BASOPHILS 0.04 0.01 - 0.08 x10'3/uL 02/13/2025 1:09 PM CDT [facility] ABS. IMMATURE GRANULOCYTES 0.03 0.00 - 0.49 x10'3/uL 02/13/2025 1:09 PM CDT [facility] 02/13/2025 12:3 4 PM CDT Malka Collier STUDY ABROAD COORDINATOR LABORATORY Final Resul t [facility] [address] [place] [address], from Last 3 Months Insurance [facility] Advance Directives * DNR (Latest Code Status on File) Date Activated Date Inactivated Comments 02/13/2025 3:32 PM 02/14/2025 9:01 AM * Full Code Date Activated Date Inactivated Comments 11/01/2023 8:53 PM 11/04/2023 5:11 PM * Full Code Date Activated Date Inactivated Comments 11/01/2023 4:48 PM 11/01/2023 8:53 PM * Full Code Date Activated Date Inactivated Comments 09/27/2018 9:19 PM 09/28/2018 12:52 PM Care Teams Light Rail Transit Operator Relationship Specialty Start Date End Date Eloisa Lemos MD [address] [place] [phone] PCP - General EMERGENCY MEDICINE 02/13/25 Jr Reveles DO [address] [place] [phone] Consulting Physician INTERNAL MEDICINE 04/27/23
--- OUTSIDE RECORDS SUMMARY | 2025-03-18 17:03 | XMS_ITS | Continuity of Care Document ---
Author Name [facility] Address [address] [place] [address] Organization [facility] Care Team Providers Care Primary Special Education Teacher Name Role Phone [facility] Unavailable Unavailable Problems Problem Status Onset Date Problem Type Date of Resolution Comme nts Source Diabetes mellitus (disorder) Active Condition Protein C deficiency disease (disorder) Active Condition Venous thrombosis (disorder) Active Condition Lower abdominal pain, unspecified Active Diagnosis Allergies, Adverse Reactions, Alerts Substance Category Reaction Severity Reaction type Status Date Reported Comments Source morphine Assertion Drug allergy Active [facility]
--- OUTSIDE RECORDS SUMMARY | 2025-03-18 17:03 | XMS_ITS | Encounter Summary ---
Author Organization [facility] Address [address] [place] [address] Phone Care Team Providers Care Distributor Of Directories Name Role Phone GailDorindajamesnadine LUIS ARMANDO Primary Care Provider [phone] Jay Rodriguez MD Unavailable Riaz Rose MD Unavailable [phone] Reason for Visit * Reason Comments Medication Refill Encounter Details Date Type Department Care Team (Late st Contact Info) Description 04/30/2024 Refill [facility] [place] [address] [place] [address] Sweetie Alvarez APRN, CORPORATION SECRETARY [address] [place], [place] [id number] Medication Refill Social History Tobacco Use Types [...] Telephone Encounter - Raquel Lr RN - 04/30/2024 8:08 AM CDT Refill request from pharmacy. Please fill if appropriate. documented in this encounter Plan of Treatment Upcoming Encounters Date Type Department Care Team (Late st Contact Info) Description 04/17/2025 9:55 AM CDT Lab [facility] [address] [address] Jr Reveles, DO [address] [place] [address] Lab, Jenna [facility] 04/17/2025 10:00 AM CDT Office Visit [facility] [address] [phone] Jr Reveles, DO [address] [place] [address] documented as of this encounter Visit Diagnoses Diagnosis Deep vein thrombosis (DVT) of femoral vein of both lower extremities, unspecified chronicity (HCC) documented in this encounter Additional Health Concerns Assessment Noted Time PHQ-9 Depression Total Score: 0 10/10/20 21 11:08 AM REEL CUTTER documented as of this encounter Care Teams Distributor Of Directories Relationship Specialty Start Date End Date Chris Jo APRN [address] [place] [address] PCP - General Advanced Practice Nurse 11/06/17 Jay Rodriguez MD [address] [place] [address] Urology 07/01/18 08/19/24 Riaz Rose MD [facility]. [address] [id number] Consulting Physician Cardiovascular Disease - Cardiology 04/23/20 documented as of this encounter
--- OUTSIDE RECORDS SUMMARY | 2025-03-18 17:03 | XMS_ITS | Clinical Summary ---
Author Organization [facility] Address [address] [place] [address] Phone Care Team Providers Care Camouflage Specialist Name Role Phone Nadine Garcia MD Primary Care Provider [phone] Allergies Active Allergy Reactions Criticality Noted Date Comments Morphine Itching,Rash Medium 10/23/2017 Medications apixaban (Eliquis) 5 mg tablet Take 5 mg by mouth 2 times daily. Active multivitamin (DAILY-ROXY) tablet Take 1 Tablet by mouth daily. Active oxyCODONE (ROXICODONE) 5 mg tabletIndication s:Preop testing,Dysfunct ion of Eustachian tube, unspecified laterality,Perfo ration of left tympanic membrane,Mucocel e of lower lip Take 1 Tablet (5 mg) by mouth every 4 hours as needed for Pain. Max Daily Amount: 6 tablets 24 Tablet 08/03/2020 5:30 PM CDT 0 Active ofloxacin (FLOXIN) 0.3 % Drops Administer 5 Drops in left ear daily, Until follow up appointment or the bottle runs out. 15 mL 08/03/2020 5:30 PM CDT 0 Active Social History Tobacco Use Types Packs/Day Years Used Date Smoking Tobacco: Every Day Cigarettes 0.5 15 Smokeless Tobacco: Never Alcohol Use Standard Drinks/Week Comments Yes 0 (1 standard drink = 0.6 oz pur e alcohol) Sex and Gender Information Value Date Recorded Sex Assigned at Not on file Legal Sex Male 12:25 PM CDT Gender Identity Not on file Sexual Orientation Not on file Last Filed Vital Signs Vital Sign Reading Time Taken Comments Blood Pressure 115/63 08/03/2020 5:22 PM CDT Pulse 90 08/03/2020 5:21 PM CDT Temperature 36.3 C (97.4 F) 08/03/2020 5:21 PM CDT Respiratory Rate 20 08/03/2020 5:21 PM CDT Oxygen Saturation 96% 08/03/2020 5:21 PM CDT Inhaled Oxygen Concentration - - Weight 79.5 kg (175 lb 3.2 oz) 08/03/2020 11:12 AM CDT Height 182.9 cm (6') 08/03/2020 11:12 AM CDT Body Mass Index 23.76 08/03/2020 11:12 AM CDT Plan of Treatment Health Maintenance Due Date Last Done Comments DTAP/TDAP/TD VACCINES (1 - Tdap) 01/29/2007 HEPATITIS B VACCINES (1 of 3 - 19+ 3-dose series) 01/29/2007 INFLUENZA VACCINE (#1) 2024 HPV VACCINES Aged Out No longer eligi ble based on patient's age to complete this topic Medical Devices Implanted Type Area Per Diem Physical Therapist Device Identifier Shelf Expiration Date Model / Serial / Lot Hemostatic Surgifoam [id number] - [id number] Implanted:Qty : 1 on 08/03/2020 by Bronson Hector MD at [facility] Hemostatic Left: Ear [employer] [id number] 02/25/20241973 / [id number] Ivc Filter/Stent Insurance [address] [place] [address] [place] [address] [place] [address] RX [facility] Medicare Part D Advance Directives For more information, please contact: [phone] * Full Code (Latest Code Status on File) Date Activated Date Inactivated Comments 08/03/2020 3:57 PM 08/03/2020 7:40 PM * Full Code Date Activated Date Inactivated Comments 08/03/2020 11:24 AM 08/03/2020 3:57 PM Care Teams Camouflage Specialist Relationship Specialty Start Date End Date Nadine Garcia MD [address] [place] [address] PCP - General Internal Medicine 07/27/20
[2025-03-18] MEDS: MIDAZOLAM HCL (*CRX) 2 MG/2 ML VIAL IM (17:07)
[2025-03-18] MEDS: HALOPERIDOL 5 MG TABLET PO (17:07)
[2025-03-18 17:09] LABS: Amphetamine Screen Urine Positive (Negative)
[2025-03-18 17:16] LABS: Thyroid Stimulating Hormone Reflex 0.657 uIU/mL (0.465-4.68)
--- NOTE | 2025-03-18 17:28 | ED.PSYCH ---
HPI - Psych General Chief Complaint: Psychiatric Symptoms Stated Complaint: hearing voices Time Seen by Provider: 03/18/25 16:13 History of Present Illness HPI Narrative: 35-year-old otherwise healthy male presenting to the emergency department with potential drug-induced psychosis. Patient states he was smoking weed with some of his friends that may have been laced with something. He feels restless, and maintaining poor eye contact, having fluttering ideas and hearing voices. Patient is very agitated but not combative. He is easily redirectable but does have a flight of ideas type speech pattern. Mom is present at bedside who states that this is unusual for him and he normally does not have any kind of psychiatric illness or reaction to drugs. Patient is not sure what the substance was that he smoked but could have had ?spice in at ?. Patient denies any chest pain shortness a breath. No nausea, vomiting, abdominal pain, back pain, fever, chills. No alcohol or other co ingestions. Does smoke marijuana. Related Data Allergies Allergy/AdvReac Type Severity Reaction Status Date / Time morphine Allergy Mild Rash Verified 03/18/25 15:48 Review of Systems Review of Systems: As [facility] Past Medical History Medical History DVT (deep venous thrombosis) Social History Social History Smoking status: Never smoker Second hand tobacco smoke exposure: No Alcohol intake: current Substance use type: marijuana Exam Narrative: GENERAL: Agitated but not combative, redirectable. Awake alert and answering questions. HEAD: [Normocephalic, atraumatic.] EYES: [PERRLA and EOMI.] ENT: Nares clear, no rhinorrhea or epistaxis. Mucous membranes moist. NECK: Supple. CHEST: [Clear to auscultation. No respiratory distress.] HEART: [Regular rate and rhythm]. No murmur heard. [Normal peripheral pulses.] ABDOMEN: [Soft, nondistended], [nontender], [No rigidity or guarding] EXTREMITIES: Normal range of motion. [No edema.] SKIN: Warm, dry, no rash. NEURO: [No focal deficits]. Alert and oriented [x3.] PSYCH: Pressured flight of ideas speech pattern, endorses auditory hallucinations but no visual hallucinations. No suicidality or homicidality. Agitated and very antsy, fidgety. Not combative. Pleasant to talk to. Course Vital Signs Vital signs: Vital Signs Temperature 36.2 C L 03/18/25 15:00 Pulse Rate 116 H 03/18/25 15:00 Respiratory Rate 18 03/18/25 15:00 Blood Pressure 139/76 03/18/25 15:00 Pulse Oximetry 98 03/18/25 15:00 Temperature 36.7 C 03/18/25 18:17 Pulse Rate 101 H 03/18/25 18:17 Respiratory Rate 20 03/18/25 18:17 Blood Pressure 124/67 03/18/25 18:17 Pulse Oximetry 98 03/18/25 18:17 MDM - Psych MDM Narrative Medical decision making narrative: 35-year-old male presenting to the emergency room with chief complaint of potential accidental drug ingestion resulting with psychiatric symptoms. He states he feels voices are talking to him and his head and he is responding to them. He denies any suicidal or homicidality. No headache or vision changes. He thinks he may have had some laced marijuana and he thinks he may have had ?spice. No chronic psychiatric conditions according to the mom and the patient. Patient is very pleasant to talk to but is antsy, fidgety and very agitated. Denies any other ingestions or alcohol use or any potential withdrawals. Vital signs show some tachycardia but no blood pressure concerns, fever, hypoxia or tachypnea. Examination aside from a psychiatric symptoms is unremarkable. Psychiatric workup was ordered in case this is a potential 1st episode of psychiatric break from schizophrenia or jesica such as bipolar type 1 but most likely this is drug-induced psychosis for potential amphetamine or similar product. CBC, CMP, TSH, COVID swabs, urine drug screen obtained. He was given oral Haldol and intramuscular Versed for symptom control and re-evaluated afterwards. Patient re-evaluated and felt significantly improved but was still hearing voices. His workup is largely unremarkable aside from polysubstance on his urine drug screen which is likely contributing to his psychosis here today. He is medically cleared for psychiatric evaluation at this time. Patient was evaluated by the Psychiatry team and believe that yes his symptoms could be secondary to drug-induced psychosis and he is low risk from a psychiatric perspective. Safety plan was conducted and patient can be safely discharged home at this time. Will be sent home with Atarax as needed. Patient was given appropriate follow-up instructions and crisis resources as needed. Family was comfortable with this plan will take him home. Medical Records Attestation: I reviewed the patient's medical records. Lab Data Attestation: I reviewed the patient's lab results. 03/18/25 16:02 03/18/25 16:02 Labs: Lab Results 03/18/25 Range/Units 16:02 WBC 6.4 (4.5-10.0) K/mm3 RBC 3.85 L (4.6-6.20) M/mm3 Hgb 12.1 L (14.0-18.0) g/dL Hct 36.8 L (42.0-52.0) % MCV 95.6 (80-100) fl MCH 31.4 (26-34) pg MCHC 32.9 (32-36) g/dl RDW 14.1 (11.5-14.5) % Plt Count 194 (150-375) k/mm3 MPV 10.6 H (7.4-10.4) fl Immature Gran % (Auto) 0.3 (0-0.5) % Neut % (Auto) 65.4 (45.5-73.1) % Lymph % (Auto) 19.2 (18.3-44.2) % Spencer % (Auto) 12.4 H (2.6-8.5) % Eos % (Auto) 2.2 (0-4.4) % Baso % (Auto) 0.5 (0.2-1.2) % Lymph # (Auto) 1.22 (0.9-3.2) K/mm3 Spencer # (Auto) 0.8 H (0.1-0.6) K/mm3 Eos # (Auto) 0.1 (0-0.3) K/mm3 Baso # (Auto) 0.0 (0.0-0.1) K/mm3 Abs Immat Gran (auto) 0.02 (0.00-0.031) K/mm3 Absolute Neuts (auto) 4.2 (1.3-6.7) K/mm3 Absolute Nucleated RBC 0.000 (0.0-0.012) K/mm3 Nucleated RBC % 0.0 (0.0-0.2) % Sodium 137 (137-145) mmol/L Potassium 4.3 (3.4-5.0) mmol/L Chloride 99 (98-107) mmol/L Carbon Dioxide 24 (22-30) mmol/L Anion Gap 14 H (4-12) mmol/L BUN 21 H (9-20) mg/dL Creatinine 1.36 H (0.7-1.3) mg/dL Estim Creat Clear Calc 65 ml/min Estimated GFR 59 (59 - ) Glucose 82 (65-110) mg/dL Calcium 9.3 (8.4-10.2) mg/dL Total Bilirubin 0.6 (0.2-1.3) mg/dL AST 31 (17-59) U/L ALT 19 (6-50) U/L Alkaline Phosphatase 79 (38-126) U/L Total Protein 8.0 (6.3-8.2) g/dL Albumin 4.8 (3.5-5.1) g/dL TSH (Reflex) 0.657 (0.465-4.68) uIU/mL Urine Color Yellow (Yellow) Urine Appearance Clear (Clear) Urine pH 6.5 (5.0-9.0) Ur Specific [place] 1.008 (1.001-1.035) Urine Protein Negative (Negative) mg/dL Urine Glucose (UA) Negative (Negative) mg/dL Urine Ketones 1+ H (Negative) mg/dL Ur Blood (Man) Negative (Negative) Urine Nitrate Negative (Negative) Urine Bilirubin Negative (Negative) Urine Urobilinogen 0.2 (<2.0) mg/dL Leukocyte Esterase Rfl Negative (Negative) ALEXX/UL Urine Opiates Screen Positive A (Negative) Urine Methadone Screen Negative (Negative) Ur Barbiturates Screen Negative (Negative) Ur Phencyclidine Scrn Negative (Negative) Ur Amphetamine Screen Positive A (Negative) U Benzodiazepines Scrn Negative (Negative) Urine Cocaine Screen Negative (Negative) U Cannabinoids Screen Positive A (Negative) Ethyl Alcohol < 10 (<10) mg/dL Influenza A (RT-PCR) Negative (Negative) Influenza B (RT-PCR) Negative (Negative) RSV (RT-PCR) Negative (Negative) SARS-CoV-2 RNA (RT-PCR) Negative (Negative) Discharge Plan Discharge Clinical Impression: Drug induced hallucinations Patient Disposition: Home Condition: Stable Instructions: Antibiotic Form Additional Instructions: Follow-up with the Psychiatry team. Return with any new or worsening/persisting concerns. Patient Language: Uruguayan Prescriptions: New hydroxyzine HCl 10 mg tablet 10 mg PO TID PRN (Reason: itching) Qty: 30 0RF Follow-up/Referrals: Aminta,Eloisa Dial MD [Primary Care Provider] - Time of Disposition: 21:10
--- OUTSIDE RECORDS SUMMARY | 2025-03-18 17:45 | XMS_ITS | Encounter Summary ---
Author Organization [facility] Address [address] [place] [address] Phone Care Team Providers Care Embryology Teacher Name Role Phone Chris Jo LUIS ARMANDO Primary Care Provider [phone] Jay Rodriguez MD Unavailable Riaz Rose MD Unavailable [phone] Encounter Details Date Type Department Care Team (Late st Contact Info) Description 06/17/2024 Telephone [facility] [place] [address] [place] [address] Jr Reveles DO [address] [place] [address] Social History Tobacco Use Types [...] AM CDT Lab [facility] [address] [phone] Jr Reveles, DO [address] [place] [address] Lab, Cc [facility] 04/17/2025 10:00 AM CDT Office Visit [facility] [address] [phone] Jr Reveles, DO [address] [place] [address] documented as of this encounter Visit Diagnoses Not on filedocumented in this encounter Additional Health Concerns Assessment Noted Time PHQ-9 Depression Total Score: 0 10/10/20 21 11:08 AM HYDRATOR documented as of this encounter Care Teams Embryology Teacher Relationship Specialty Start Date End Date Chris Jo APRN [address] [place] [phone] PCP - General Advanced Practice Nurse 11/06/17 Jay Rodriguez MD [address] [place] [phone] Urology 07/01/18 08/19/24 Riaz Rose MD Three [facility]. [place] [address] [place], [place] [id number] Consulting Physician Cardiovascular Disease - Cardiology 04/23/20 documented as of this encounter
--- OUTSIDE RECORDS SUMMARY | 2025-03-18 17:45 | XMS_ITS | Encounter Summary ---
Author Organization [facility] Address [address] [place] [address] Phone Care Team Providers Care Ammonia Operator Name Role Phone GailDorindajamesnadine LUIS ARMANDO Primary Care Provider [phone] Jay Rodriguez MD Unavailable Riaz Rose MD Unavailable [phone] Reason for Visit * Reason Comments Medication Refill Encounter Details Date Type Department Care Team (Late st Contact Info) Description 07/29/2023 Refill [facility] [place] [address] [place] [address] Sweetie Alvarez APRN, DOWEL STICKER OPERATOR [address] [place], [place] [id number] Medication Refill Social History Tobacco Use Types [...] AM CDT Lab [facility] [address] [address] Jr Reveles, DO [address] [place] [address] Lab, Jenna [facility] 04/17/2025 10:00 AM CDT Office Visit [facility] [address] [phone] Jr Reveles, DO [address] [place] [address] documented as of this encounter Visit Diagnoses Diagnosis Deep vein thrombosis (DVT) of femoral vein of both lower extremities, unspecified chronicity (HCC) documented in this encounter Additional Health Concerns Assessment Noted Time PHQ-9 Depression Total Score: 0 10/10/20 21 11:08 AM STORE PLANNER documented as of this encounter Care Teams Ammonia Operator Relationship Specialty Start Date End Date Chris Jo APRN [address] [place] [address] PCP - General Advanced Practice Nurse 11/06/17 Jay Rodriguez MD [address] [place] [address] Urology 07/01/18 08/19/24 Riaz Rose MD [facility]. [address] [phone] Consulting Physician Cardiovascular Disease - Cardiology 04/23/20 documented as of this encounter
--- OUTSIDE RECORDS SUMMARY | 2025-03-18 17:45 | XMS_ITS | Encounter Summary ---
Author Organization [facility] Address [address] [place] [address] Phone Care Team Providers Care Yarrow Gatherer Name Role Phone Chris Jo LUIS ARMANDO Primary Care Provider [phone] Jay Rodriguez MD Unavailable Riaz Rose MD Unavailable [phone] Encounter Details Date Type Department Care Team (Late st Contact Info) Description 04/10/2022 Telephone [facility] [address] [place] [address] Jr Reveles DO [address] [place] [address] Social History Tobacco Use Types [...] CDT Lab [facility] [address] [phone] Jr Reveles, DO [address] [place] [address] Lab, Cc [facility] 04/17/2025 10:00 AM CDT Office Visit [facility] [address] [address] Jr Reveles, DO [address] [place] [address] documented as of this encounter Visit Diagnoses Not on filedocumented in this encounter Additional Health Concerns Assessment Noted Time PHQ-9 Depression Total Score: 0 10/10/20 21 11:08 AM HOSPITAL TRAY SERVICE WORKER documented as of this encounter Care Teams Yarrow Gatherer Relationship Specialty Start Date End Date Addy JoLUIS ARMANDO mccoy [address] [place] [address] PCP - General Advanced Practice Nurse 11/06/17 Jay Rodriguez MD [address] [place] [phone] Urology 07/01/18 08/19/24 Riaz Rose MD Three [facility]. [facility] [address] [place], [place] [phone] Consulting Physician Cardiovascular Disease - Cardiology 04/23/20 documented as of this encounter
--- OUTSIDE RECORDS SUMMARY | 2025-03-18 17:45 | XMS_ITS | Continuity of Care Document ---
Author Name [facility] Address [address] [place] [address] Organization [facility] Care Team Providers Care Group Supervisor Yard Name Role Phone [facility] Unavailable Unavailable Problems Problem Status Onset Date Problem Type Date of Resolution Comme nts Source Diabetes mellitus (disorder) Active Condition Protein C deficiency disease (disorder) Active Condition Venous thrombosis (disorder) Active Condition Lower abdominal pain, unspecified Active Diagnosis Allergies, Adverse Reactions, Alerts Substance Category Reaction Severity Reaction type Status Date Reported Comments Source morphine Assertion Drug allergy Active [facility]
--- OUTSIDE RECORDS SUMMARY | 2025-03-18 17:45 | XMS_ITS | Encounter Summary ---
Author Organization [facility] Address [address] [place] [address] Phone Care Team Providers Care Corrections Corporal Name Role Phone GailDorindajamesnadine LUIS ARMANDO Primary Care Provider [phone] Jay Rodriguez MD Unavailable Riaz Rose MD Unavailable [phone] Reason for Visit * Reason Comments Medication Refill Encounter Details Date Type Department Care Team (Late st Contact Info) Description 04/30/2024 Refill [facility] [place] [address] [place] [address] Sweetie Alvarez APRN, SHIPPING AND RECEIVING CLERK [address] [place], [place] [phone] Medication Refill Social History Tobacco Use Types [...] CDT Lab [facility] [address] [address] Jr Reveles, DO [address] [place] [address] Lab, Jenna [facility] 04/17/2025 10:00 AM CDT Office Visit [facility] [address] [phone] Jr Reveles, DO [address] [place] [address] documented as of this encounter Visit Diagnoses Diagnosis Deep vein thrombosis (DVT) of femoral vein of both lower extremities, unspecified chronicity (HCC) documented in this encounter Additional Health Concerns Assessment Noted Time PHQ-9 Depression Total Score: 0 10/10/20 21 11:08 AM TALENT ACQUISITION ASSOCIATE documented as of this encounter Care Teams Corrections Corporal Relationship Specialty Start Date End Date Chris Jo APRN [address] [place] [address] PCP - General Advanced Practice Nurse 11/06/17 Jay Rodriguez MD [address] [place] [address] Urology 07/01/18 08/19/24 Riaz Rose MD [facility]. [address] [phone] Consulting Physician Cardiovascular Disease - Cardiology 04/23/20 documented as of this encounter
--- OUTSIDE RECORDS SUMMARY | 2025-03-18 17:45 | XMS_ITS | Encounter Summary ---
Author Organization [facility] Address [address] [place] [address] Phone Care Team Providers Care Dry House Wheeler Name Role Phone Chris Jo LUIS ARMANDO Primary Care Provider [phone] Jay Rodriguez MD Unavailable Riaz Rose MD Unavailable [phone] Reason for Visit * Reason Comments Medication Refill Encounter Details Date Type Department Care Team (Late st Contact Info) Description 04/21/2021 Refill [facility] [place] [address] [place] [address] Jr Reveles, [address] [place] [address] Medication Refill Social History Tobacco [...] AM CDT Lab [facility] [address] [address] Jr Reveles, DO [address] [place] [phone] [facility] 04/17/2025 10:00 AM CDT Office Visit [facility] [address] [address] Jr Reveles, DO [address] [place] [phone] documented as of this encounter Visit Diagnoses Not on filedocumented in this encounter Additional Health Concerns Assessment Noted Time PHQ-9 Depression Total Score: 0 04/11/20 21 10:43 AM CDT documented as of this encounter Care Teams Dry House Wheeler Relationship Specialty Start Date End Date Chris Jo APRN [address] [place] [address] PCP - General Advanced Practice Nurse 11/06/17 Jay Rodriguez MD [address] [place] [phone] Urology 07/01/18 08/19/24 Riaz Rose MD [address] [address] Consulting Physician Cardiovascular Disease - Cardiology 04/23/20 documented as of this encounter
--- OUTSIDE RECORDS SUMMARY | 2025-03-18 17:45 | XMS_ITS | Encounter Summary ---
Author Organization [facility] Address [address] [place] [address] Phone Care Team Providers Care National Flatbed Truck Driver Name Role Phone Chris Jo LUIS ARMANDO Primary Care Provider [phone] Jay Rodriguez MD Unavailable Riaz Rose MD Unavailable [phone] Encounter Details Date Type Department Care Team (Late st Contact Info) Description 05/30/2024 Telephone [facility] [place] [address] [place] [address] Jr Reveles DO [address] [place] [address] Social History Tobacco Use Types [...] called to rs wasn't able to reach [facility],sent letter out. documented in this encounter Plan of Treatment Upcoming Encounters Date Type Department Care Team (Late st Contact Info) Description 04/17/2025 9:55 AM CDT Lab [facility] [address] [phone] Jr Reveles, DO [address] [place] [address] Lab, Cc [facility] 04/17/2025 10:00 AM CDT Office Visit [facility] [address] [phone] Jr Reveles, DO [address] [place] [address] documented as of this encounter Visit Diagnoses Not on filedocumented in this encounter Additional Health Concerns Assessment Noted Time PHQ-9 Depression Total Score: 0 10/10/20 21 11:08 AM NUMERICAL CONTROL NESTING OPERATOR documented as of this encounter Care Teams National Flatbed Truck Driver Relationship Specialty Start Date End Date Addy Jonadine LUIS ARMANDO [address] [place] [phone] PCP - General Advanced Practice Nurse 11/06/17 Jay Rodriguez MD [address] [place] [phone] Urology 07/01/18 08/19/24 Riaz Rose MD Three [facility]. [facility] [address] [place] [address] Consulting Physician Cardiovascular Disease - Cardiology 04/23/20 documented as of this encounter
--- OUTSIDE RECORDS SUMMARY | 2025-03-18 17:45 | XMS_ITS | Clinical Summary ---
Author Organization [facility] Address [address] [place] [address] Phone Care Team Providers Care Profiling Machine Set Up Operator Name Role Phone Nadine Garcia MD Primary Care Provider [phone] Allergies Active Allergy Reactions Criticality Noted Date [...] this topic Medical Devices Implanted Type Area Quill Skinner Device Identifier Shelf Expiration Date Model / Serial / Lot Hemostatic Surgifoam [id number] - [id number] Implanted:Qty : 1 on 08/03/2020 by Bronson Hector MD at [facility] Hemostatic Left: Ear [employer] [id number] 02/25/20241973 / [id number] Ivc Filter/Stent [place] [address] MEDICAID [place] [facility] Medicare Part D Advance Directives For more information, please contact: [phone] * Full Code (Latest Code Status on File) Date Activated Date Inactivated Comments 08/03/2020 3:57 PM 08/03/2020 7:40 PM * Full Code Date Activated Date Inactivated Comments 08/03/2020 11:24 AM 08/03/2020 3:57 PM Care Teams Profiling Machine Set Up Operator Relationship Specialty Start Date End Date Nadine Garcia MD [address] [place] [address] PCP - General Internal Medicine 07/27/20
--- OUTSIDE RECORDS SUMMARY | 2025-03-18 17:45 | XMS_ITS | Encounter Summary ---
Author Organization [facility] [[email or web address]] Address [address] [place] [address] Phone Care Team Providers Care Mutual Fund Manager Name Role Phone GailDorindajamesnadine LUIS ARMANDO Primary Care Provider [phone] Jay Rodriguez MD Unavailable Riaz Rose MD Unavailable [phone] Reason for Visit * Reason Onset Date Comments Medication Refill 10/10/2022 Encounter Details Date Type Department Care Team (Late st Contact Info) Description 10/10/2022 Refill [facility] [address] [place] [address] Zaheer Araujo MD [address] [place] [address] Medication Refill Social History Tobacco [...] * Telephone Encounter - Sweetie Lam APRN, SURGICAL SERVICES DIRECTOR - 10/11/2022 8:18 AM MORTGAGE BANKER Okay to refill. GAGE BANKER * Telephone Encounter - Keith Tilley - 10/10/2022 4:10 PM CST Refill request for Eliquis 5 mg. Refill if appropriate to [facility] GAGE BANKER documented in this encounter Plan of Treatment Upcoming Encounters Date Type Department Care Team (Late st Contact Info) Description 04/17/2025 9:55 AM CDT Lab [facility] [address] [phone] Jr Reveles, DO [address] [place] [phone] [facility] 04/17/2025 10:00 AM CDT Office Visit [facility] [address] [phone] Jr Reveles, DO [address] [place] [phone] documented as of this encounter Visit Diagnoses Not on filedocumented in this encounter Additional Health Concerns Assessment Noted Time PHQ-9 Depression Total Score: 0 10/10/20 21 11:08 AM MORTGAGE BANKER documented as of this encounter Care Teams Mutual Fund Manager Relationship Specialty Start Date End Date Chris Jo APRN [address] [place] [address] PCP - General Advanced Practice Nurse 11/06/17 Jay Rodriguez MD [address] [place] [address] Urology 07/01/18 08/19/24 Riaz Rose MD Three [facility]. [address] [address] Consulting Physician Cardiovascular Disease - Cardiology 04/23/20 documented as of this encounter
--- OUTSIDE RECORDS SUMMARY | 2025-03-18 17:45 | XMS_ITS | Encounter Summary ---
Author Organization [facility] Address [address] [place] [address] Phone Care Team Providers Care Political Aide Name Role Phone Chris Jo LUIS ARMANDO Primary Care Provider [phone] Jay Rodriguez MD Unavailable Riaz Rose MD Unavailable [phone] Reason for Visit * Reason Comments Medication Refill Encounter Details Date Type Department Care Team (Late st Contact Info) Description 03/13/2022 Refill [facility] [address] [place] [address] Jr Reveles, [address] [place] [address] Medication Refill Social History Tobacco [...] AM CDT Lab [facility] [address] [phone] Jr Reveles, DO [address] [place] [phone] Lab, Cc [facility] 04/17/2025 10:00 AM CDT Office Visit [facility] [address] [phone] Jr Reveles, DO [address] [place] [phone] documented as of this encounter Visit Diagnoses Not on filedocumented in this encounter Additional Health Concerns Assessment Noted Time PHQ-9 Depression Total Score: 0 10/10/20 21 11:08 AM GERIATRIC NURSE documented as of this encounter Care Teams Political Aide Relationship Specialty Start Date End Date Chris Jo APRN [address] [place] [address] PCP - General Advanced Practice Nurse 11/06/17 Jay Rodriguez MD [address] [place] [phone] Urology 07/01/18 08/19/24 Riaz Rose MD [address] [phone] Consulting Physician Cardiovascular Disease - Cardiology 04/23/20 documented as of this encounter
--- OUTSIDE RECORDS SUMMARY | 2025-03-18 17:45 | XMS_ITS | Clinical Summary ---
Author Organization [facility] Address [address], [facility] [address] [place] [address] Phone Care Team Providers Care Merchandise For Resale Purchasing Agent Name Role Phone GailDorindaomar DURÁN Primary Care Provider [phone] Riaz Rose MD Unavailable [phone] Allergies Active Allergy Reactions Criticality Noted [...] Description 02/06/2025 Telephone [facility] [address] [phone] Jr Reveles DO 01/17/2025 Refill [facility] [address] [phone] Jr Reveles, Medication Refill from Last 3 Months Immunizations Immunization Administration Dates Next Due Covid-19 Vaccine, Vector-nr, Rs-ad26, Pf, 0.5 Ml ([employer]/J&J) 03/02/2021 Influenza, Injectable, Quadrivalent 10/01/2017 TDAP Vaccine [...] Comments Blood Pressure 122/76 10/17/2024 10:04 AM PRODUCTION GEAR CUTTER Pulse 95 10/17/2024 10:04 AM PRODUCTION GEAR CUTTER Temperature 36.7 C (98 F) 10/17/2024 10:04 AM PRODUCTION GEAR CUTTER Respiratory Rate 18 10/17/2024 10:04 AM PRODUCTION GEAR CUTTER Oxygen Saturation 97% 10/17/2024 10:04 AM PRODUCTION GEAR CUTTER Inhaled Oxygen Concentration - - Weight 97.8 kg (215 lb 9.6 oz) 10/17/2024 10:04 AM PRODUCTION GEAR CUTTER Height 182.9 cm (6') 10/17/2024 10:04 AM PRODUCTION GEAR CUTTER Body Mass Index 29.24 10/17/2024 10:04 AM PRODUCTION GEAR CUTTER Plan of Treatment Upcoming Encounters Date Type Department Care Team (Late st Contact Info) Description 04/17/2025 9:55 AM CDT Lab [facility] [address] [phone] Jr Reveles, [address] [place] [phone] Lab, Cc [facility] 04/17/2025 10:00 AM CDT Office Visit [facility] [address] [phone] Jr Reveles, [address] [place] [address] Health Maintenance Due Date Last [...] to complete this topic Insurance MEDICARE [facility] Care Teams Merchandise For Resale Purchasing Agent Relationship Specialty Start Date End Date Chris Jo APRN [address] [place] [address] PCP - General Advanced Practice Nurse 11/06/17 Riaz Rose MD [address] [phone] Consulting Physician Cardiovascular Disease - Cardiology 04/23/20
--- OUTSIDE RECORDS SUMMARY | 2025-03-18 17:45 | XMS_ITS | Clinical Summary ---
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 Chronic deep vein thrombosis (DVT) of proximal vein of both lower extremities ([facility]) 06/04/2018 Encounters Date Type Department Care Team Description 02/13/2025 12:14 PM CDT - 02/14/2025 6:41 AM CDT Hospital Encounter [facility] Med/Surg [address] [place] [address] Gu[address] [place], Jean Singer MD Groin Pain [...] = 0.6 oz pur e alcohol) occasionally [email or web address] Answer Date Recorded In the past 12 months has e [employer], gas, oil, or water [employer] threatened to shut off services in your [...] place to sleep or slept in a group home (including now)? No 11/02/2023 Housing Stability Vital Sign Answer Campos e Recorded In the last 12 months, was t here a time when you were not able to pay the mortgage or rent on time? No 02/13/2025 In the past 12 months, how m any times have you moved where you were living? 0 02/13/2025 At any time in the past 12 m [facility], were you homeless or living in a group home (including now)? No 02/13/2025 Sex and Gender Information Value Date Recorded Sex Assigned at Male 11/01/2023 9:08 PM EVENT COORDINATOR MARKETING AND SALES Legal Sex Male 11:08 AM EVENT COORDINATOR MARKETING AND SALES Gender Identity Male 11/01/2023 9:08 PM EVENT COORDINATOR MARKETING AND SALES Sexual Orientation Straight 11/01/2023 9: 08 PM EVENT COORDINATOR MARKETING AND SALES Last Filed Vital Signs Vital Sign Reading [...] - 0.70 IU/ML 02/13/2025 5:22 PM CDT [facility] Comment: UFH Therapeutic Anti Xa Ranges: Medical Therapeutic Range: 0.30 - 0.70 IU/mL Cardiac Therapeutic Range: 0.30 - 0.50 IU/mL Neuro Therapeutic Range: 0.20 - 0.40 IU/mL 02/13/2025 4:40 PM CDT Guero [place] DO LABORATORY Final Res ult [facility] [address] [place] [address], * USV IRMA DUPLEX LOW EXT PRIMO (02/13/2025 2:58 PM CDT) Anatomical Region Laterality Modality Extremity Vascular Ultraso und 02/13/2025 1:39 PM CDT Narrative 02/13/2025 3:58 PM CDT VENOUS DUPLEX IMAGING BILATERAL LOWER EXTREMITY VASCULAR LAB Pat.Name: MAX RIVERA Pat.ID: [id number] St.Date: 02/13/2025 Refer.MD: Eloisa Lemos Exam Time: [...] EXTREMITY VASCULAR LAB Pat.Name: MAX RIVERA Pat.ID: [id number] .Date: 02/13/2025 Refer.MD: Eloisa Lemos Exam Time: [...] 03:58 PM Luiza Tariq M.D. Guero [place] [facility] VASC Final Res ult * PARTIAL THROMBOPLASTIN TIME,PTT (02/13/2025 12:34 PM CDT) PTT 30.6 25.1 - 36.5 SEC 02/13/2025 1:26 PM CDT [facility] 02/13/2025 12:3 [address] [facility] Final Resul t Performing Organization Address [facility] Co de Phone Number [facility] [address] [place] [address], * PROTIME/INR, VENOUS (02/13/2025 12:34 PM CDT) PROTIME 11.6 10.2 - 12.9 SEC 02/13/2025 1:26 PM CDT [facility] INR 1.0 02/13/2025 1:26 PM CDT [facility] Comment: Recommended INR Therapeutic Goals: 2.0-3.0 Routine Therapy 2.5-3.5 Mechanical Prosthetic Valves (High Risk) 02/13/2025 12:3 [address] [facility] Final Resul t Performing Organization Address City/[facility] Co de Phone Number [facility] [address] [place] [phone], * (ABNORMAL) COMPREHENSIVE METABOLIC PANEL (02/13/2025 12:34 PM CDT) [facility] GLUCOSE 89 70 - 99 MG/DL 02/13/2025 1:15 PM CDT [facility] BUN 16 7 - 18 MG/DL 02/13/2025 1:15 PM CDT [facility] CREATININE S/P/B 1.15 0.7 - 1.3 MG/DL 02/13/2025 1:15 PM CDT [facility] SODIUM S/P/B 130(L) 136 - 145 MMOL/L 02/13/2025 1:15 PM CDT [facility] POTASSIUM S/P/B 4.0 3.5 - 5.1 MMOL/L 02/13/2025 1:15 PM CDT [facility] CHLORIDE S/P/B 99 97 - 115 MMOL/L 02/13/2025 1:15 PM CDT [facility] CO2 23.5 21 - 32 MMOL/L 02/13/2025 1:15 PM CDT [facility] CALCIUM S/P/B 9.3 8.5 - 10.1 MG/DL 02/13/2025 1:15 PM CDT [facility] BILIRUBIN TOTAL S/P/B 1.2 0.2 - 1.2 MG/DL 02/13/2025 1:15 PM CDT [facility] Comment: THIS ASSAY IS NOT RECOMMENDED FOR PATIENTS UNDERGOING TREATMENT WITH ELTROMBOPAG DUE TO THE POTENTIAL FOR FALSELY ELEVATED RESULTS. TOTAL PROTEIN S/P/B 7.9 6.4 - 8.2 G/DL 02/13/2025 1:15 PM CDT [facility] ALBUMIN S/P/B 4.2 3.4 - 5.0 G/DL 02/13/2025 1:15 PM CDT [facility] AST 21 15 - 37 U/L 02/13/2025 1:15 PM CDT [facility] ALT 18 16 - 60 U/L 02/13/2025 1:15 PM CDT [facility] ALKALINE PHOSPHATASE S/P/B 110 50 - 136 U/L 02/13/2025 1:15 PM CDT [facility] ANION GAP 7.5 2 - 10 MMOL/L 02/13/2025 1:15 PM CDT [facility] BUN CREATININE RATIO 13.9 6 - 26 02/13/2025 1:15 PM CDT [facility] A/G RATIO 1.1 1.0 - 2.0 RATIO 02/13/2025 1:15 PM CDT [facility] GFR ESTIMATE 84(L) >90 ML/MIN/1.7 3 M2 02/13/2025 1:15 PM CDT [facility] Comment: NOTE: eGFR is not calculated for patients <18 years of age or gender unknown. This is an estimated GFR calculation using the new CKD EPI creatinine equation without race and so does not require a correction factor for race. This estimated GFR should not be used for calculating drug doses. 02/13/2025 12:3 4 PM CDT Malka Collier TOLL OPERATOR LABORATORY Final Resul t [facility] [address] [place] [address], [place] [phone] * (ABNORMAL) CBC W/DIFF AUTOMATED (02/13/2025 12:34 PM CDT) WBC 7.89 4.5 - 11.0 x10'3/uL 02/13/2025 1:09 PM CDT [facility] RBC 4.58(L) 4.70 - 6.10 x10'6/uL 02/13/2025 1:09 PM CDT [facility] HGB 14.5 14.0 - 18.0 G/DL 02/13/2025 1:09 PM CDT [facility] HCT 45.3 43.0 - 54.0 % 02/13/2025 1:09 PM CDT [facility] MCV 98.9(H) 80.0 - 94.0 FL 02/13/2025 1:09 PM CDT [facility] MCH 31.7(H) 27.0 - 31.0 PG 02/13/2025 1:09 PM CDT [facility] MCHC 32.0 32.0 - 36.0 G/DL 02/13/2025 1:09 PM CDT [facility] RDW 13.7 11.5 - 14.5 % 02/13/2025 1:09 PM CDT [facility] PLT 125(L) 130 - 400 x10'3/uL 02/13/2025 1:09 PM CDT [facility] MPV 11.2 9.3 - 12.2 FL 02/13/2025 1:09 PM CDT [facility] DIFFERENTIAL TYPE AUTOMATED DIFFERENTIAL 02/13/2025 1:09 PM CDT [facility] NEUTROPHILS % 73.6 % 02/13/2025 1:09 PM CDT [facility] LYMPHOCYTES % 14.1 % 02/13/2025 1:09 PM CDT [facility] MONOCYTES % 8.7 % 02/13/2025 1:09 PM CDT [facility] EOSINOPHILS 2.7 % 02/13/2025 1:09 PM CDT [facility] BASOPHILS 0.5 % 02/13/2025 1:09 PM CDT [facility] IMMATURE GRANS % 0.4 % 02/14/20 1:09 PM CDT [facility] ABS. NEUTROPHILS 5.81 1.80 - 7.70 x10'3/uL 02/13/2025 1:09 PM CDT [facility] ABS. LYMPHOCYTES 1.11 1.00 - 4.80 x10'3/uL 02/13/2025 1:09 PM CDT [facility] ABS. MONOCYTES 0.69 0.30 - 0.82 x10'3/uL 02/13/2025 1:09 PM CDT [facility] ABS. EOSINOPHILS 0.21 0.04 - 0.54 x10'3/uL 02/13/2025 1:09 PM CDT [facility] ABS. BASOPHILS 0.04 0.01 - 0.08 x10'3/uL 02/13/2025 1:09 PM CDT [facility] ABS. IMMATURE GRANULOCYTES 0.03 0.00 - 0.49 x10'3/uL 02/13/2025 1:09 PM CDT [facility] 02/13/2025 12:3 4 PM CDT Malka Collier TOLL OPERATOR LABORATORY Final Resul t [facility] [address] [place] [address], from Last 3 Months Insurance [facility] Advance Directives * DNR (Latest Code [...] 9:19 PM 09/28/2018 12:52 PM Care Teams Certified Energy Manager Relationship Specialty Start Date End Date Eloisa Lemos MD [address] [place] [phone] PCP - General EMERGENCY MEDICINE 02/13/25 Jr Reveles DO [address] [place] [phone] Consulting Physician INTERNAL MEDICINE 04/27/23
--- OUTSIDE RECORDS SUMMARY | 2025-03-18 17:45 | XMS_ITS | Encounter Summary ---
Author Organization [facility] Address [address] [place] [address] Phone Care Team Providers Care Rolled Seat Trimmer Name Role Phone Chris Jo LUIS ARMANDO Primary Care Provider [phone] Jay Rodriguez MD Unavailable Riaz Rose MD Unavailable [phone] Encounter Details Date Type Department Care Team (Late Contact Info) Description 06/17/2024 Telephone [facility] [address] [address] Jr Reveles DO [address] [place] [phone] Social History Tobacco Use Types Packs/Day [...] 9:55 AM CDT Lab [facility] [address] [address] Jr Reveles, DO [address] [place] [address] [facility] 04/17/2025 10:00 AM CDT Office Visit [facility] [place] [address] [place] [address] Jr Reveles, DO [address] [place] [address] documented as of this encounter Visit Diagnoses Not on filedocumented in this encounter Additional Health Concerns Assessment Noted Time PHQ-9 Depression Total Score: 0 10/10/20 21 11:08 AM PIPER INSTALLER documented as of this encounter Care Teams Rolled Seat Trimmer Relationship Specialty Start Date End Date Chris Jo APRN [address] [place] [address] PCP - General Advanced Practice Nurse 11/06/17 Jay Rodriguez MD [address] [place] [address] Urology 07/01/18 08/19/24 Riaz Rose MD Three [facility] [address] [place] [address] Consulting Physician Cardiovascular Disease - Cardiology 04/23/20 documented as of this encounter
[2025-03-18 18:17] VITALS: BP 124/67; PULSE 101; RESP 20; TEMP 36.7; O2SAT 98
--- NOTE | 2025-03-18 19:22 | PC.NURSE ---
Assumed care of patient after receiving bedside report from HAL Fields. @ [phone]
== END 2025-03-18 21:20 | disposition home or self-care (01) ==
PROVIDERS: Emergency Medicine; Emergency Provider Student in an Organized Health Care Education/Training Program; PCP Emergency Medicine
DX: F19.951 Other psychoactive substance use, unspecified with psychoactive substance-induced psychotic disorder with hallucinations (principal); Z86.718 Personal history of other venous thrombosis and embolism; Z11.59 Encounter for screening for other viral diseases
CPT/HCPCS: 36415; 80053; 80307; 81003; 82077; 84443; 85025; 87637; 96372; 99284; A9270; J2250